=== PATIENT | male | born 2005 | race African-American/Black ===

== ENCOUNTER 2024-03-02 17:31 | Emergency (ER) | payer MEDICAID, OTHER ==
[~2024-03-02] VITALS: Ht 185.4 cm; Wt 97.7 kg
[2024-03-02 19:20] VITALS: BP 128/70; PULSE 51; RESP 18; TEMP 98.2; O2SAT 98
== END 2024-03-02 21:31 | disposition home or self-care (01) ==
LOC: ER 17:31
DX: M25.561 Pain in right knee (principal); W01.0XXA Fall on same level from slipping, tripping and stumbling without subsequent striking against object, initial encounter; Y93.67 Activity, basketball; Y92.89 Other specified places as the place of occurrence of the external cause; Y99.8 Other external cause status
CPT/HCPCS: 73562